=== PATIENT | male | born 1990 | race Caucasian/White ===

== ENCOUNTER 2018-03-17 23:02 | Emergency (ER) | payer OTHER ==
[~2018-03-17] VITALS: Ht 172.7 cm; Wt 74.8 kg
[~2018-03-17 23:02] MED LIST: BACITO TP; CYCL10 PO; HYDACE5 PO; NAPR550 PO; Naprosyn500 MG PO; Norco 5-325 Ta1 EACH PO; Permethrin60 GM TP; TERB24TC TOP
[2018-03-18] MEDS ORDERED: CEPH500 PO (00:16)
== END 2018-03-18 00:46 | disposition home or self-care (01) ==
LOC: ER 23:02
DX: S61.431A Puncture wound without foreign body of right hand, initial encounter (principal); Z23 Encounter for immunization; F17.200 Nicotine dependence, unspecified, uncomplicated; W29.4XXA Contact with nail gun, initial encounter
CPT/HCPCS: 73130; 90471; 90714; 99283

== ENCOUNTER 2020-04-08 19:42 | Emergency (ER) | payer SELFPAY ==
[~2020-04-08] VITALS: Ht 170.2 cm; Wt 79.4 kg
[~2020-04-08 19:42] MED LIST changes: +CEPH500 PO; +Cleocin HCl300 MG PO; +KETO10 PO
[2020-04-08] MEDS ORDERED: TRAM50 PO (20:47)
[2020-04-08] MEDS ORDERED: PENVK500 PO (20:47)
== END 2020-04-08 20:55 | disposition home or self-care (01) ==
LOC: ER 19:42
DX: K08.89 Other specified disorders of teeth and supporting structures (principal); F17.200 Nicotine dependence, unspecified, uncomplicated
CPT/HCPCS: 99282

== ENCOUNTER 2020-05-31 23:01 | Emergency (ER) | payer OTHER ==
[~2020-05-31] VITALS: Ht 167.6 cm; Wt 79.4 kg
[~2020-05-31 23:01] MED LIST changes: +PENVK500 PO; +TRAM50 PO
[2020-05-31] MEDS ORDERED: OXYACE7.5T PO (23:43)
[2020-06-01] MEDS ORDERED: Crutch1 EACH XX (00:13)
== END 2020-06-01 00:45 | disposition home or self-care (01) ==
LOC: ER 23:01
DX: S92.352A Displaced fracture of fifth metatarsal bone, left foot, initial encounter for closed fracture (principal); Z88.0 Allergy status to penicillin; Z88.5 Allergy status to narcotic agent; F17.200 Nicotine dependence, unspecified, uncomplicated; V00.131A Fall from skateboard, initial encounter; Y93.51 Activity, roller skating (inline) and skateboarding
CPT/HCPCS: 29125; 73610; 73630; 99283-25; A9270

== ENCOUNTER 2023-05-01 11:24 | Emergency (ER) | payer OTHER ==
[~2023-05-01] VITALS: Ht 170.2 cm; Wt 79.4 kg
[~2023-05-01 11:24] MED LIST changes: +Crutch1 EACH XX; +OXYACE7.5T PO
[2023-05-01 11:33] VITALS: BP 148/86
[2023-05-01] MEDS ORDERED: CEPH500 PO (12:53)
== END 2023-05-01 13:03 | disposition home or self-care (01) ==
LOC: ER 11:24
DX: S30.851A Superficial foreign body of abdominal wall, initial encounter (principal); F17.290 Nicotine dependence, other tobacco product, uncomplicated; X58.XXXA Exposure to other specified factors, initial encounter
CPT/HCPCS: 10120; 99282-25

== ENCOUNTER → 2023-05-08 | Outpatient (CLI) | payer OTHER | LOC: PLD 07:39 | DX: L98.498 Non-pressure chronic ulcer of skin of other sites with other specified severity (principal) ==

== ENCOUNTER → 2024-12-31 | Outpatient (CLI) | payer OTHER ==
[2024-12-31 17:00] LABS: BODY FLUID RBC 0.064 M/mm3 (0-0)
[2024-12-31 17:01] LABS: RBC Count, Synovial Fluid 64000 /mm3 (0-0); WBC Count, Synovial Fluid 1361 /mm3 (0-180)
[2024-12-31 17:18] LABS: Body Fluid Crystals NEG (NEGATIVE)
[2024-12-31 18:08] LABS: Lymphs, Synovial Fluid 2 % (0-15); Monocytes/Macrophages, Synovia 34 % (0-65); Neutrophils, Synovial Fluid 64 % (0-24)
[2024-12-31 18:11] LABS: Appearance, Synovial Fluid Cloudy (Clear); Color, Synovial Fluid Red (None-P Yel)
== END ==
LOC: LAB SHORT 13:57 → LAB 13:57
PROVIDERS: Family Medicine
DX: M71.10 Other infective bursitis, unspecified site (principal)
CPT/HCPCS: 87070; 87075; 87077; 87186; 87205; 89051; 89060

== ENCOUNTER 2025-01-03 11:07 | Emergency (ER) | payer OTHER ==
[~2025-01-03] VITALS: Ht 170.2 cm; Wt 81.7 kg
[2025-01-03 11:14] VITALS: BP 126/79
== END 2025-01-03 11:37 | disposition home or self-care (01) ==
LOC: ER 11:07
DX: M25.461 Effusion, right knee (principal); F17.290 Nicotine dependence, other tobacco product, uncomplicated; R89.5 Abnormal microbiological findings in specimens from other organs, systems and tissues
CPT/HCPCS: 99283

== ENCOUNTER → 2025-01-19 | Outpatient (CLI) | payer OTHER ==
[2025-01-19 16:13] LABS: Body Fluid Crystals NEG (NEGATIVE)
[2025-01-19 16:19] LABS: BODY FLUID RBC 0.162 M/mm3 (0-0)
[2025-01-19 16:28] LABS: RBC Count, Synovial Fluid 162000 /mm3 (0-0); WBC Count, Synovial Fluid 1111 /mm3 (0-180)
[2025-01-19 17:46] LABS: Eos, Synovial Fluid 1 % (0-2); Lymphs, Synovial Fluid 40 % (0-15); Monocytes/Macrophages, Synovia 34 % (0-65); Neutrophils, Synovial Fluid 25 % (0-24)
[2025-01-19 17:47] LABS: Appearance, Synovial Fluid Cloudy (Clear); Color, Synovial Fluid Red (None-P Yel)
== END ==
LOC: LAB 14:10 → LAB SHORT 14:10
PROVIDERS: Family Medicine
DX: M25.461 Effusion, right knee (principal)
CPT/HCPCS: 87205; 89051; 89060

== ENCOUNTER 2025-01-24 20:04 | Emergency (ER) | payer OTHER ==
[~2025-01-24] VITALS: Ht 170.2 cm; Wt 79.4 kg
[2025-01-24 20:24] VITALS: BP 111/84
[2025-01-24 20:55] LABS: BASOPHILS ABSOLUTE AUTO 0.04 K/mm3 (0.00-0.23); BASOPHILS PERCENT AUTO 0 % (0-2); EOSINOPHILS ABSOLUTE AUTO 0.02 K/mm3 (0.00-0.68); EOSINOPHILS PERCENT AUTO 0 % (0-6); Hematocrit 44.1 % (37.0-53.0); Hemoglobin 15.8 g/dL (13.5-17.5); IMMATURE GRAN ABSOLUTE AUTO 0.07 K/mm3 (0.00-0.10); IMMATURE GRAN PERCENT AUTO 0 % (0-1); LYMPHOCYTES PERCENT AUTO 8 % (21-46); MONOCYTES ABSOLUTE AUTO 2.02 K/mm3 (0.16-1.47); MONOCYTES PERCENT AUTO 11 % (4-13); Mean Corpuscular HGB Conc 35.8 g/dL (31.5-36.5); Mean Corpuscular Volume 84 fL (80-100); Mean Platelet Volume 8.9 fL (9.1-12.4); NEUTROPHILS ABSOLUTE AUTO 14.41 K/mm3 (1.96-9.15); NEUTROPHILS PERCENT AUTO 80 % (41-73); Platelet Count 317 K/mm3 (150-400); RDW Coefficient Variation 13.7 % (11.7-14.2); RDW Standard Deviation 42.2 fL (35.1-46.3); Red Blood Cell Count 5.27 M/mm3 (4.30-5.90); White Blood Cell Count 18.06 K/mm3 (4.00-11.30)
[2025-01-24 21:21] LABS: Albumin, Blood 4.8 g/dL (3.4-5.0); Albumin/Globulin Ratio 1.5 (0.8-1.8); Bilirubin, Total 0.6 mg/dL (0.1-1.0); Bun/Creatinine Ratio 7.2 (12.0-20.0); Calcium, Blood 8.9 mg/dL (8.5-10.1); Creatinine, Blood 1.95 mg/dL (0.60-1.20); Globulin, Blood 3.3 g/dL (2.2-4.0); Potassium, Blood 3.6 mmol/L (3.5-5.5); Total Protein, Blood 8.1 g/dL (6.4-8.2)
[2025-01-25] MEDS ORDERED: Ondansetron HCl 2 MG / ML 2ML Vial ONE (00:10)
[2025-01-25] MEDS ORDERED: Ondansetron HCl 2 MG / ML 2ML Vial IV ONE (00:10)
== END 2025-01-25 01:05 | disposition home or self-care (01) ==
LOC: ER 20:04
PROVIDERS: Student in an Organized Health Care Education/Training Program
DX: T40.411A Poisoning by fentanyl or fentanyl analogs, accidental (unintentional), initial encounter (principal); R55 Syncope and collapse; N17.9 Acute kidney failure, unspecified; F17.290 Nicotine dependence, other tobacco product, uncomplicated
CPT/HCPCS: 80053; 84484; 85025; 93005; 93010; J2405